=== PATIENT | male | born 1990 | race African-American/Black ===

== ENCOUNTER 2020-11-03 05:57 | Emergency (ER) | payer OTHER ==
[~2020-11-03] VITALS: Ht 170.2 cm; Wt 95.3 kg
[2020-11-03] MEDS ORDERED: MEDROLDOSEPACK PO (06:45)
[2020-11-03 06:53] VITALS: BP 148/88
== END 2020-11-03 06:53 | disposition home or self-care (01) ==
LOC: M.ERS 05:57
DX: G62.9 Polyneuropathy, unspecified (principal)